=== PATIENT | female | born 1965 | race Caucasian/White ===

== ENCOUNTER 2019-12-29 06:09 | Emergency (ER) | payer BC ==
--- NOTE | 2019-12-29 06:27 | EDM.PDOC ---
ED HPI GENERAL MEDICAL PROBLEM - General Chief Complaint: Genitourinary Problem Stated Complaint: PT IS IN NEED OF straight CATHETER Time Seen by Provider: 12/29/19 06:10 Source of Information: Reports: Patient History Limitations: Reports: No Limitations - History of Present Illness INITIAL COMMENTS - FREE TEXT/NARRATIVE: History of present illness: [Patient is a 54-year-old female presenting with chief complaint of needing a straight cath. She states that she has a history of bladder problems since having surgery several years ago and requires intermittent straight cath to help empty her bladder. She is visiting from out of town and she forgot her equipment. She woke up this morning with a sensation of bladder fullness and wanting to pee but was unable to do so and is requesting a straight cath. She has no other complaints. She does not have any concern for UTI, no fever, otherwise no dysuria yesterday, no systemic symptoms, is feeling fine other than suprapubic fullness and requesting the straight cath be performed.] Review of systems: As per history of present illness and below otherwise all systems reviewed and negative. Past medical history: As per history of present illness and as reviewed below otherwise noncontributory. Surgical history: As per history of present illness and as reviewed below otherwise noncontributory. Social history: No reported history of drug or alcohol abuse. Family history: As per history of present illness and as reviewed below otherwise noncontributory. Physical exam: General: Awake, alert, no acute distress, A&O X3. HEENT: Atraumatic, normocephalic, pupils reactive, negative for conjunctival pallor or scleral icterus, mucous membranes moist, throat clear, neck supple, nontender, trachea midline. Lungs: Clear to auscultation, breath sounds equal bilaterally, chest nontender. Heart: RRR, normal S1S2, no JVD. Abdomen: Soft, nondistended, nontender. Negative for masses or hepatosplenomegaly. Negative for costovertebral tenderness. Pelvis: Stable nontender. Genitourinary: mild suprapubic fulness Rectal: Deferred. Extremities: Atraumatic, negative for cords or calf pain. Neurovascular unremarkable. Neuro: Awake, alert, oriented. Motor and sensory grossly intact throughout. Exam nonfocal. Diagnostics: [] Therapeutics: [] Impression: [] Plan: [] Definitive disposition and diagnosis as appropriate pending reevaluation and review of above. ED ROS GENERAL - Review of Systems Review Of Systems: Comprehensive ROS is negative, except as noted in HPI. ED EXAM, GI/ABD - Physical Exam Exam: See Below (see h and p) Course - Vital Signs Text/Narrative:: Straight cath performed without complication. Patient tolerated well. Feels much better afterwards Departure - Departure Time of Disposition: 06:26 Disposition: Home, Self-Care 01 Condition: Good Clinical Impression: Urinary retention - Discharge Information Instructions: Clean Intermittent Catheterization, Female Referrals: PCP,None [Primary Care Provider] - Additional Instructions: Follow-up with primary care doctor. Take all medications as previously prescribed. Return to the ER with any new or worsening symptoms. The following information is given to patients seen in the emergency department who are being discharged to home. This information is to outline your options for follow-up care. We provide all patients seen in our emergency department with a follow-up referral. The need for follow-up, as well as the timing and circumstances, are variable depending upon the specifics of your emergency department visit. If you don't have a primary care physician on staff, we will provide you with a referral. We always advise you to contact your personal physician following an emergency department visit to inform them of the circumstance of the visit and for follow-up with them and/or the need for any referrals to a consulting specialist. The emergency department will also refer you to a specialist when appropriate. This referral assures that you have the opportunity for follow-up care with a specialist. All of these measure are taken in an effort to provide you with optimal care, which includes your follow-up.
== END 2019-12-29 06:35 | disposition home or self-care (01) ==
LOC: MW.ED 06:09
DX: R33.9 Retention of urine, unspecified (principal)
CPT/HCPCS: 99282; 99283